=== PATIENT | female | born 1985 | race Hispanic/Latino ===

== ENCOUNTER 2024-05-05 22:31 | Emergency (ER) | payer OTHER ==
[~2024-05-05] VITALS: Ht 165.1 cm; Wt 86.0 kg
[~2024-05-05 22:31] MED LIST: AMOX-POT CLA PO; BACTRIM DS1 TAB PO; CIPROFLOXACN500 MG PO; CYCLOBENZAPR5 MG PO; DICLOFENAC SODI75 MG PO; DOXYCYCL HYC100 M3 PO; FLAGYL500 MG OR; FLEXERIL PO; FLOVENT DI50 MCG/BLI IN; LORTAB 5 OR; LORTAB 5/3255 MG PO; NAPROSYN500 MG OR; NO HOME MEDS; PERCOCET 5/321 COMBO PO; PRENATAL1 TA1; PROAIR HFA IN; PROMETHAZINE25 MG OR; ROCEPHIN 2250 MG/VIA IM; TRAMADOL HCL50 MG PO; ZITHROMAX250 MG OR
[2024-05-05] MEDS ORDERED: KETOROLAC TROMETHAMINE 30 MG/ML SDV IV ONE (23:10)
[2024-05-05] MEDS ORDERED: ONDANSETRON HCl 4 MG/2 ML SDV IV ONE (23:10)
[2024-05-05] MEDS ORDERED: MORPHINE SULFATE 4 MG/ML VIAL IV ONE (23:10)
[2024-05-05] MEDS ORDERED: EXCEDRIN PO (23:17)
[2024-05-05] MEDS ORDERED: IMITREX50 MG PO (23:17)
[2024-05-05 23:19] VITALS: BP 109/67
[2024-05-05 23:30] VITALS: BP 111/77
[2024-05-06] VITALS: BP 111/77
== END 2024-05-06 | disposition home or self-care (01) ==
LOC: ED 22:31
DX: G43.909 Migraine, unspecified, not intractable, without status migrainosus (principal); F17.290 Nicotine dependence, other tobacco product, uncomplicated
CPT/HCPCS: J2405